=== PATIENT | male | born 1960 | race American Indian/Alaskan Native ===

== ENCOUNTER 2017-08-01 09:13 | Day surgery (SDC) | payer OTHER ==
[2017-08-01] MEDS ORDERED: NACL 0.9% 1000 ML 1,000 ML IV SCH (10:00)
[2017-08-01] MEDS ORDERED: WATER FOR IRRIG STERILE IR ONE ×2 (10:46→13:41)
--- NOTE | 2017-08-01 11:09 | Anesthesia Consultation ---
Anesthesia Consult and Med Hx Date of service: 08/01/17 - Airway Anesthetic Teeth Evaluation: Partials (upper removable) ROM Head & Neck: Adequate Mental/Hyoid Distance: Adequate Mallampati Class: Class II Intubation Access Assessment: Probably Good - Pulmonary Exam CTA: Yes - Cardiac Exam Cardiac Exam: RRR - Pre-Operative Health Status ASA Pre-Surgery Classification: ASA1 Proposed Anesthetic Plan: MAC - Pre-Anesthesia Comment Pre-Anesthesia Comments: healthy non smoker - Pulmonary Hx Smoking: No - Cardiovascular System Hx Hypertension: No - Additional Comments Anesthesia Medical History Comments: NAC from last colonsocopy
--- NOTE | 2017-08-01 11:09 | Anesthesia Day of Surgery ---
Anesthesia Day of Surgery - Day of Surgery Patient Examined: Yes Patient H&P Reviewed: Yes Patient is NPO: Yes
--- NOTE | 2017-08-01 12:34 | Operative Report ---
Operative Report Operative Report: Date of procedure: 08/01/2017 Procedure: Colonoscopy with hot biopsy polypectomy. 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 A colonoscopy serves to evaluate patient for colorectal cancer screening. Consent: Informed consent was obtained after advising the patient and family regarding nature of this procedure, its indications, potential benefits as well as possible complications including but not limited to bleeding perforation and adverse reaction to medication, infection as well as other cardiopulmonary complications. An informed written and verbal consent was then obtained after due opportunity was provided for questions and answers. Monitoring: Patient was monitored continuously with pulse oximetry and electrocardiographic recordings as well as blood pressure recordings. Vital signs remained stable throughout this procedure with no untoward events. Preoperative assessment: Patient was assessed immediately prior to this procedure for capacity to tolerate monitored anesthesia care and moderate sedation as well as general anesthesia. Patient's ASA classification is 2, Mallampati class is 2, Hyomental distance is 3. Instrument: [employer] videocolonoscope. [employer] video endoscope. Medications: Propofol given intravenously in divided doses. For details please refer to anesthesia records. Description of procedure: Patient was placed in the left lateral decubitus position after achieving sedation, a digital rectal examination was performed following which the colonoscope was introduced into the anal verge and advanced to the cecum which was identified by the cecal valve, the appendiceal orifice, as well as by the cecal strap and direct transillumination. The colonoscope was subsequently withdrawn with careful inspection of all mucosal surfaces. Patient tolerated this procedure well and was subsequently taken to the recovery room. The following findings were noted. Findings: Patient had significant diverticulosis involving the all segments of the colon. There was a flat polyp in the sigmoid colon which measured approximately 5-6 mm which was removed by hot biopsy polypectomy. The rest of the colon to the cecum was normal, except for areas of significant retained thick liquid stool which was vigorously irrigated. On the retroflex view at the anal verge, patient had internal hemorrhoids. Patient tolerated the procedure well with no untoward events. Impression: Flat sigmoid colon polyp status post hot biopsy polypectomy. Retained stool. Diverticular disease of the colon. Prominent Internal hemorrhoids Plan: Follow pathology report. Daily sitz baths as needed when hemorrhoids are symptomatic. High-fiber diet. PRN stool softeners Repeat colonoscopy in 5 years if polyp is adenomatous.
[2017-08-01] MEDS ORDERED: DIPRIVAN 10 MG/ML IV ONE ×2 (13:39→13:40)
--- NOTE | 2017-08-01 14:19 | Discharge Summary ---
Short Stay Discharge Plan Activity: advance as tolerated Weight Bearing Status: Weight Bear as Tolerated Diet: regular
--- NOTE | 2017-08-01 14:33 | Post Anesthesia Evaluation ---
- Post Anesthesia Evaluation Patient Participated: Yes Airway Patent: Yes Stable Respiratory Function: Yes Temp > 96.8F: Yes Pain Manageable: Yes Adequeate Hydration: Yes Anesthesia Complications: No
[2017-08-01 14:54] VITALS: BP 151/80
== END 2017-08-01 09:14 | disposition home or self-care (01) ==
LOC: GIO 09:13
PROVIDERS: ATTEND Internal Medicine Gastroenterology
DX: Z12.11 Encounter for screening for malignant neoplasm of colon (principal); K57.30 Diverticulosis of large intestine without perforation or abscess without bleeding; K63.5 Polyp of colon; K64.8 Other hemorrhoids
CPT/HCPCS: 45384; 88305; J2704; J7030